=== PATIENT | female | born 1960 | race Caucasian/White ===

== ENCOUNTER 2021-02-11 00:03 | Emergency (ER) | payer MEDICAID, OTHER ==
[~2021-02-11] VITALS: Ht 160 cm; Wt 63.5 kg
[2021-02-11] MEDS ORDERED: cefTRIAXone 1GM/50ML D5W 50 ML IV ONE (05:45)
[2021-02-11] MEDS ORDERED: SODIUM CHLORIDE 0.9% 1,000 ML IV ONE (05:45)
[2021-02-11 06:57] LABS: Urine Bacteria NONE SEEN /hpf (None Seen); Urine Blood 2+ /uL (Negative); Urine Mucus FEW (None Seen); Urine Specific Gravity 1.025 (1.001-1.035); Urine WBC 51 /hpf (0 - 5)
[2021-02-11 07:28] LABS: Albumin 3.4 g/dL (3.4-5.0); BUN/Creatinine Ratio 32.9; Basophils # (auto) 0.1 10 ^3/uL (0-0.2); Basophils % (auto) 0.6 % (0.0-2.0); Calcium 8.7 mg/dL (8.5-10.1); Eosinophils # (auto) 0.5 10 ^3/uL (0-0.8); Eosinophils % (auto) 4.8 % (0.0-7.0); Hematocrit 40.2 % (36.0-46.0); Hemoglobin 13.7 g/dL (12.2-16.2); Lymphocytes # (auto) 2.7 10 ^3/uL (0.4-5.4); Lymphocytes % (auto) 23.8 % (10.0-50.0); Mean Corpuscular Hemoglobin 32.1 pg (28.0-32.0); Mean Corpuscular Hgb Conc. 34.2 g/dL (32.0-36.0); Mean Corpuscular Volume 93.8 fL (80.0-100.0); Monocytes # (auto) 0.9 10 ^3/uL (0-1.3); Monocytes % (auto) 8.1 % (0.0-12.0); Neutrophils # (auto) 7.1 10 ^3/uL (1.6-8.6); Neutrophils % (auto) 62.7 % (37.0-80.0); Potassium 3.7 mmol/L (3.5-5.1); Red Blood Cells 4.28 10^6/uL (4.0-5.20); Red Cell Distribution Width 12.7 % (11.8-14.3); White Blood Cell 11.3 10^3/uL (4.4-10.8)
[2021-02-11 07:31] LABS: Bilirubin, Total 0.7 mg/dL (0.2-1.0); Total Protein 7.7 g/dL (6.4-8.2)
[2021-02-11] MEDS ORDERED: CIPROFLOXACIN 400MG/200ML 200 ML IV ONE (07:45)
[2021-02-11 09:03] VITALS: BP 94/68
== END 2021-02-11 11:17 | disposition home or self-care (01) ==
LOC: ER 00:09
DX: T83.098A Other mechanical complication of other urinary catheter, initial encounter (principal); N39.0 Urinary tract infection, site not specified; L03.311 Cellulitis of abdominal wall; I10 Essential (primary) hypertension; Z86.73 Personal history of transient ischemic attack (TIA), and cerebral infarction without residual deficits
CPT/HCPCS: 36415; 51702; 80053; 81001; 83605; 85025; 96365; 99284; J0696